=== PATIENT | male | born 1995 | race American Indian/Alaskan Native ===

== ENCOUNTER 2022-05-11 10:11 | Emergency (ER) | payer SELFPAY ==
--- NOTE | 2022-05-11 12:02 | Emergency Department Report ---
Stated Complaint: MH/SUIC THOUGHTS Time Seen by Provider: 05/11/22 12:00 - HPI History of Present Illness: SI, HI, and hallucinations. - ROS Review of Systems: Denies pain, chest pain, shortness of breath. - Exam Physical Exam: Awake alert and oriented. MSE screening note: Focused history and physical exam performed. Due to findings the following was ordered: ED Disposition for MSE Condition: Stable
[2022-05-11 13:54] LABS: Basophils # (Auto) 0.1 K/mm3 (0.0-0.1); Basophils % (Auto) 0.9 % (0.0-1.8); Eosinophils # (Auto) 0.4 K/mm3 (0.0-0.4); Eosinophils % (Auto) 7.3 % (0.0-4.3); Hematocrit 41.9 % (35.5-45.6); Hemoglobin 14.2 gm/dl (11.8-15.2); Lymphocytes % (Auto) 33.7 % (13.4-35.0); Mean Corpuscular HGB Conc 34 % (32-34); Mean Corpuscular Volume 89 fl (84-94); Monocytes # (Auto) 0.5 K/mm3 (0.0-0.8); Monocytes % (Auto) 8.5 % (0.0-7.3); Platelet Count 280 K/mm3 (140-440); Red Blood Count 4.71 M/mm3 (3.65-5.03)
[2022-05-11 14:11] LABS: Alanine Aminotransferase 20 units/L (7-56); BUN/Creatinine Ratio 14; Blood Urea Nitrogen 13 mg/dL (9-20); Calcium 9.2 mg/dL (8.4-10.2); Hemolysis Index 32
--- NOTE | 2022-05-11 18:26 | Emergency Department Report ---
ED Psych HPI - General Chief Complaint: Psych Stated Complaint: MH/SUIC THOUGHTS Time Seen by Provider: 05/11/22 12:00 Source: patient, family Mode of arrival: Ambulatory - History of Present Illness Initial Comments: Patient is a 27-year-old male with history of schizophrenia, bipolar and homelessness presenting for psychiatric evaluation. Admits to using several illicit drugs to ease the pain of his lifestyle. Reports intermittent auditory and visual hallucinations. Also endorses suicidal thoughts. MD Complaint: suicidal ideation - Related Data Allergies Allergy/AdvReac Type Severity Reaction Status Date / Time No Known Allergies Allergy Verified 05/11/22 12:15 ED Review of Systems ROS: Stated complaint: MH/SUIC THOUGHTS Other details as noted in HPI Constitutional: denies: chills, fever Respiratory: no symptoms reported Cardiovascular: denies: chest pain, palpitations Gastrointestinal: denies: abdominal pain, nausea, diarrhea Genitourinary: denies: urgency, dysuria Musculoskeletal: denies: back pain, joint swelling, arthralgia Skin: denies: rash, lesions Neurological: denies: headache, weakness, paresthesias Psychiatric: auditory hallucinations, visual hallucinations, suicidal thoughts ED Past Medical Hx - Past Medical History Hx Psychiatric Treatment: Yes Additional medical history: bipolar schizophrenia ED Physical Exam - General Limitations: No Limitations General appearance: alert, in no apparent distress - Head Head exam: Present: atraumatic, normocephalic - Respiratory Respiratory exam: Present: normal lung sounds bilaterally. Absent: respiratory distress - Cardiovascular Cardiovascular Exam: Present: regular rate, normal rhythm, normal heart sounds - GI/Abdominal GI/Abdominal exam: Present: soft. Absent: distended, tenderness - Rectal Rectal exam: Present: deferred - Neurological Exam Neurological exam: Present: alert, oriented X3 - Psychiatric Psychiatric exam: Present: normal mood, suicidal ideation - Skin Skin exam: Present: warm, dry, intact, normal color ED Medical Decision Making - Lab Data Result diagrams: 05/11/22 12:54 05/11/22 12:54 - Medical Decision Making Labs grossly unremarkable. [id number] signed. Patient awaiting assessment by psychiatry. Critical care attestation.: If time is entered above; I have spent that time in minutes in the direct care of this critically ill patient, excluding procedure time. ED Disposition Clinical Impression: Suicidal ideation, Auditory hallucination, Visual hallucinations Disposition: 30 STILL A PATIENT Is pt being admited?: No Does the pt Need Aspirin: No Condition: Stable
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
[2022-05-12 10:18] VITALS: BP 139/90
--- NOTE | 2022-05-12 14:20 | Event Note ---
Date: 05/12/22 27-year-old male with multiple comorbidities presents for evaluation of SI. Patient's chart reviewed as well as documentation of both the ER providers as well as mental health. Serum labs reviewed as well. Patient has been deemed clear for mental health standpoint. The patient's vitals are stable. He is well-appearing. He denies any endorsement of SI or HI to me. He does not appear to be acutely hallucinating or responding to any internal stimuli. He states he will go to stay with his cousin upon discharge. All questions answered. Prescriptions written by mental health provider for this patient. Prior to discharge patient was given strict verbal and written return precautions. Patient verbalized understanding and agreement the plan of care.
== END 2022-05-12 15:04 | disposition home or self-care (01) ==
LOC: ED 10:11
DX: R45.851 Suicidal ideations (principal); R44.0 Auditory hallucinations; R44.1 Visual hallucinations; F31.9 Bipolar disorder, unspecified
CPT/HCPCS: 36415; 80053; 80320; 85025; 99284; G0480